=== PATIENT | male | born 1985 | race Caucasian/White ===

== ENCOUNTER → 2023-09-16 09:44 | Outpatient (CLI) | payer BC, SELFPAY ==
--- NOTE | ~2023-09-16 | XR_ITS ---
Right ankle Technique: AP and lateral views were obtained. Clinical History: Injury Findings: No acute fracture or dislocation is seen. Osseous alignment is anatomic. Ankle mortise and other visualized joint spaces are preserved. Soft tissues are otherwise unremarkable. Impression: Unremarkable right ankle. Reviewed, dictated and finalized at location . 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
== END ==
PROVIDERS: PCP Family Medicine; Visit Provider Family Medicine
DX: S99.911A Unspecified injury of right ankle, initial encounter (principal); T14.90XA Injury, unspecified, initial encounter
CPT/HCPCS: 73600